=== PATIENT | female | born 1985 | race Caucasian/White ===

== ENCOUNTER 2019-07-22 15:21 | Emergency (ER) | payer SELFPAY ==
[~2019-07-22] VITALS: Ht 167.6 cm; Wt 65.0 kg
[2019-07-22 15:23] VITALS: BP 101/48
== END 2019-07-22 16:10 | disposition left against medical advice (07) ==
LOC: ER 15:21
DX: R10.30 Lower abdominal pain, unspecified (principal); F22 Delusional disorders; R45.851 Suicidal ideations
CPT/HCPCS: 99283

== ENCOUNTER 2019-07-26 14:06 | Emergency (ER) | payer SELFPAY ==
[~2019-07-26] VITALS: Ht 167.6 cm; Wt 57.0 kg
[2019-07-26] MEDS ORDERED: LORATADINE 10MG TABLET PO ONE (14:15)
[2019-07-26 14:46] VITALS: BP 111/70
== END 2019-07-26 14:47 | disposition left against medical advice (07) ==
LOC: ER 14:09
DX: Z53.21 Procedure and treatment not carried out due to patient leaving prior to being seen by health care provider (principal)

== ENCOUNTER 2019-08-11 23:35 | Emergency (ER) | payer MEDICAID ==
[~2019-08-11] VITALS: Ht 160 cm; Wt 55.0 kg
[2019-08-12 01:22] VITALS: BP 140/62
[2019-08-12 01:47] LABS: CLARITY URINE CLOUDY (CLEAR); COLOR URINE YELLOW (YELLOW); KETONES URINE NEGATIVE (NEGATIVE); PH URINE 5.5 (4.5-8.0); PROTEIN URINE NEGATIVE (NEGATIVE)
[2019-08-12 01:48] LABS: LEUKOCYTE ESTERASE URINE 2+ (NEGATIVE); NITRITE URINE NEGATIVE (NEGATIVE); OCCULT BLOOD URINE NEGATIVE (NEGATIVE); UROBILINOGEN URINE 0.2 E.U./dL (0.2-1.0)
[2019-08-12] MEDS ORDERED: CEPHALEXIN 250MG CAPSULE PO ONE (02:30)
== END 2019-08-12 04:10 | disposition home or self-care (01) ==
LOC: ER 23:35
DX: N39.0 Urinary tract infection, site not specified (principal); F20.0 Paranoid schizophrenia; R31.9 Hematuria, unspecified; F31.9 Bipolar disorder, unspecified
CPT/HCPCS: 81003; 81025; 99283